=== PATIENT | female | born 1960 | race Caucasian/White ===

== ENCOUNTER 2019-11-05 09:00 | Outpatient (AMBR) | payer MEDICAID, SELFPAY ==
--- NOTE | 2019-10-22 10:46 | PT.OIERPT ---
PT OP Initial Eval Patient Information Pediatric or Adult Patient: Adult PT >13 Visit Reasons: low back pain Medical Diagnosis: Low back pain with radiculopathy. Treatment Dx #1: low back pain Treatment Dx #2: muscle weakness. Start of Care: 10/22/19 Date of Onset: 08/03/2019 Initial Assessment Subjective 59 y/o female who had LBP for almost a year now. Patient has pain on her Low back radiating towards her L hip. She has pain during sitting and ambulation. PS 10/10 at worst and 9/10 at best. Patient has no hx of falls. Objective Increase in lumbar lordosis (+) SLR LLE (+) Fabere test on LLE Iliac crest level on BLE MMT BLE 4/5 abdominals - 3+/5 lumbar extensors 4/5 Pain on low back PS 10/10 (+) muscle tightness on lumbar flexion, extension, lateral flexion to left and right. Assessment Patient demonstrates most disc herniation based on assessment and special test. Patient will need physical therapy for strengthening of abdominals and lumbar musculature. Decrease pain by modalities, kinesiotaping and manual therapy. Patient has 5 visits authorized by insurance. Will request for more visits after 5 txs. If there are no significant change noted after 10 visits will refer back to her PCP. Patient verbalized understanding. Short Term and Snf Goals 1. To decrease pain on her low back to 0-1/10 x 8 weeks to be able to move without limitations. 2. To increase ms strength on abdominals. lumbar extensors to 5/5 x 8 weeks 3.to be I with HEP Treatment Plan Thera ex Manual tx Kinesiotaping. Modalities (hmp, estim) Frequency and Duration 2x/wk x 8 weeks Certification Dates: 10/22/2019 to 01/21/2020
--- NOTE | 2019-10-26 10:19 | PT.ODAYNRPT ---
PT Outpatient Daily Note Date of Service: October 26, 2019 OP Daily Note Pediatric or Adult Patient: Adult PT >13 Visit Reasons: low back pain Outpatient Physical Therapy Treatment Date: 10/26/19 Subjective: I have pain on my LBP and radiates to my L bottom area. Objective: pls see FS Assessment: Patient were given modalities, ROM and STM with stretching to improve joint mobility. Patient feels tightness on her LLE. She has pain this morning when she wakes up. Plan: To continue POC toward goals Pain Present Currently: Yes Length of Time (minutes) of Treatment: 30 Minutes Office Procedures PT Procedures PT Date of Service: 10/22/19 OP PT Eval Mod Complex 30 minutes: Yes
--- NOTE | 2019-10-30 12:37 | PT.ODAYNRPT ---
PT Outpatient Daily Note Date of Service: October 30, 2019 OP Daily Note Visit Reasons: low back pain Outpatient Physical Therapy Treatment Date: 10/30/19 Subjective: pt came in with LBP upon visit. she had no concerns nor questions from last visit. Objective: see flow sheet. Assessment: added new ther ex for strengthening in which she was fatigued but completed all ther ex. she needs rest breaks in between exercises. she does get SOB. she was able to tolerate thera band with ther ex and good standing posture. did not increase pain. informed pt about possible soreness. pt had no complaints post ther ex. assisted her with bed mobility. Plan: continue POC per PT. Length of Time (minutes) of Treatment: 30 Minutes Office Procedures PT Procedures PT Date of Service: 10/22/19 OP PT Eval Mod Complex 30 minutes: Yes PT Procedures PT Date of Service: 10/26/19 OP Electrical Stimul Unattended: Yes Therapeutic Activity 15 minutes: Yes PT Procedures PT Date of Service: 10/30/19 OP Electrical Stimul Unattended: Yes Therapeutic Exercise 15 minutes: Yes
--- NOTE | 2019-11-05 09:08 | PT.ODAYNRPT ---
PT Outpatient Daily Note Date of Service: November 05, 2019 OP Daily Note Visit Reasons: low back pain Outpatient Physical Therapy Treatment Date: 11/05/19 Assessment: pt was not treated due to waiting on insurance auth. explained to pt. she will be contacted once auth is approved. Office Procedures PT Procedures PT Date of Service: 10/22/19 OP PT Eval Mod Complex 30 minutes: Yes PT Procedures PT Date of Service: 10/26/19 OP Electrical Stimul Unattended: Yes Therapeutic Activity 15 minutes: Yes PT Procedures PT Date of Service: 10/30/19 OP Electrical Stimul Unattended: Yes Therapeutic Exercise 15 minutes: Yes
== END 2019-11-17 23:59 | disposition home or self-care (01) ==
PROVIDERS: PCP Family Medicine; Referring Provider Family Medicine; Visit Provider Family Medicine
DX: M54.5 Low back pain (principal); M54.16 Radiculopathy, lumbar region; M62.81 Muscle weakness (generalized)
CPT/HCPCS: 97014; 97110; 97162; 97530; G0283

== ENCOUNTER 2024-11-28 11:56 | Emergency (ER) | payer MEDICAID, SELFPAY ==
[2024-11-28 11:58] VITALS: BMI 44.9
--- NOTE | 2024-11-28 12:13 | XR_ITS ---
Examination: PA lateral chest 2 views Technique: Upright PA lateral chest 2 views Exam date and time: November 28, 2024 1220 hrs. Comparison February 27, 2020 Indications: Flu symptoms today. Findings: Normal heart size Ectatic enlarged thoracic aorta Accentuation bronchovascular markings. No lobar pneumonia Impression: Bronchitis pattern
[2024-11-28 12:14] VITALS: BP 137/85; PULSE 98; RESP 22; TEMP 39.4; O2SAT 94; BMI 44.6
--- NOTE | 2024-11-28 12:20 | EDRME_ITS ---
Rapid Medical Screening Exam [facility] Arrival date/time: 11/28/24 11:56 64-year-old female with a history of hypertension and diabetes presents the emergency department complaints of fever body aches chills and cough Patient febrile at 102.9 sepsis alert initiated Chief Complaint: Flu Like Symptoms Time Seen by Provider: 11/28/24 12:07 Vital signs: Vital Signs Temperature 102.9 F H 11/28/24 12:14 Pulse Rate 98 11/28/24 12:14 Respiratory Rate 22 H 11/28/24 12:14 Blood Pressure 137/85 H 11/28/24 12:14 Pulse Oximetry (%) 94 L 11/28/24 12:14 Oxygen Delivery Method Room Air 11/28/24 12:14
[2024-11-28 12:39] VITALS: TEMP 39.4
[2024-11-28] MEDS: ACETAMINOPHEN 500 MG TABLET 1000 MG PO (12:39)
[2024-11-28 13:17] LABS: Collection Type, Urine Clean Catch
[2024-11-28 13:18] LABS: Lactate (Lactic Acid) 1.5 mMol/L (0.4-2.0)
[2024-11-28 13:26] LABS: Basophils % (Auto) 1 % (0-2.5); Eosinophils % (Auto) 1 % (0-10); Hematocrit 41.1 % (36.0-46.0); Hemoglobin 13.8 g/dL (12.0-16.0); Immature Granulocytes % (Auto) 1 % (0-0); Immature Granulocytes Auto 0.03 Thou/mm3 (0.00-0.00); Lymphocytes # (Auto) 0.6 Thou/mm3 (1.0-4.8); Lymphocytes % (Auto) 9 % (10-50); Mean Corpuscular HGB Conc 33.6 g/dl (31.0-37.0); Mean Corpuscular Hemoglobin 28.9 pg (25.0-35.0); Mean Corpuscular Volume 86 fL (80-100); Monocytes # (Auto) 0.9 Thou/mm3 (0.0-0.8); Monocytes % (Auto) 14 % (0-12); Neutrophils % (Auto) 76 % (37-80); Nucleated Red Blood Cell % 0 /100 WBC (0); Platelet Count 194 Thou/mm3 (140-440); RDW Standard Deviation 43.1 fL (36.4-46.3); Red Blood Count 4.78 Miln/mm3 (4.00-5.20); White Blood Count 6.5 Thou/mm3 (3.6-11.0)
[2024-11-28 13:36] LABS: Glucose Estimated Average 105 mg/dL (80-131); Hemoglobin A1C 5.3 % Hgb (4.8-6.0)
--- NOTE | 2024-11-28 13:43 | EDNOTE_ITS ---
Upper Respiratory Inf. RME/HPI General Chief Complaint: Flu Like Symptoms Stated Complaint: FLU SYMPTOMS FOR 3 DAYS Time Seen by Provider: 11/28/24 12:07 Arrival date/time: 11/28/24 11:56 RME / HPI RME / HPI Narrative: 64-year-old female patient with significant history of hypertension diabetes mellitus, came in for evaluation regarding flulike symptoms. Patient is having flulike symptoms for the last 3 days, described as sore throat body aches dizziness cough fever that comes and goes, severity moderate. Patient denies any vomiting denies any diarrhea denies any constipation denies any ill contacts no medication was taken prior to arrival. Related Data Home Medications ?Medication ?Instructions ?Recorded ?Confirmed levothyroxine 50 mcg tablet 50 mcg PO DAILY Thyroid ##0 09/24/13 08/11/24 (Synthroid) metformin 500 mg tablet 500 mg PO BID #0 tabs 02/08/14 08/11/24 (Glucophage) omeprazole 40 mg capsule,delayed 20 mg PO QDAY 02/13/18 08/11/24 release amlodipine 5 mg tablet 10 mg PO QDAY 08/16/18 08/11/24 docusate sodium 100 mg capsule 100 mg PO BID 08/16/18 08/11/24 (Doc-Q-Lace) lisinopril 40 mg tablet 40 mg PO QDAY 09/12/18 08/11/24 estradiol 10 mcg vaginal tablet 10 mcg vaginal DIRECTED 01/02/22 08/11/24 (Vagifem) atorvastatin 10 mg tablet 10 mg PO QDAY 03/04/23 08/11/24 Previous Rx's ?Medication ?Instructions ?Recorded docusate sodium 100 mg capsule 100 mg PO BID #40 caps 03/05/23 (Colace) hydrocodone 7.5 mg-acetaminophen 1 tab PO Q6H PRN pain (scale score 03/05/23 325 mg tablet 7-10) #20 tabs cefuroxime axetil 500 mg tablet 500 mg PO BID #14 tabs 11/28/24 ibuprofen 800 mg tablet 800 mg PO TID PRN pain #30 tabs 11/28/24 oseltamivir 75 mg capsule (Tamiflu) 75 mg PO BID 5 days #10 caps 11/28/24 Allergies Allergy/AdvReac Type Severity Reaction Status Date / Time ibuprofen AdvReac Severe UPSET Verified 11/28/24 12:01 STOMACH DUE TO GERD Review of Systems Review of Systems Narrative Review of Systems: Review of system reviewed and within normal limits except mentioned in HPI ED Exam Narrative Physical exam: VITAL SIGNS: Reviewed. GENERAL APPEARANCE: Alert and interactive, follows commands, no acute distress, HEAD AND FACE: Non-traumatic. ENT: PERRL, pink conjunctivitis, eyelid no trauma, Mucous membrane moist. NECK: Supple, nontender, no nuchal rigidity. CHEST: No tenderness, no crepitus, no paradoxical movement, no retractions. LUNGS: Clear, well ventilated, symmetric, no rales, no wheezing, no ronchi, no stridor, good breath sounds bilaterally. HEART: Regular rate, regular rhythm, no murmur, no gallops. ABDOMEN: Soft, positive bowel sounds, nondistended, no guarding, nontender, no rebound, no masses, RECTAL: Deferred. GENITAL: Deferred. NEUROLOGICAL: Gross motor function intact sensory function intact, Appropriate for age. MUSCULOSKELETAL: low back nontender, full range of motion. EXTREMITIES: Nontender, full range of motion. SKIN: Color pink, dry, no rash, no lacerations, no abrasions, no contusions. LYMPHATICS: Deferred. Course Quality Measures none Orders Category Date Time Status Bedside COVID-19 Antigen Test NOW Care 11/28/24 12:13 Active Bedside Influenza A&B Antigen Test NOW Care 11/28/24 12:13 Completed Insert IV NOW Care 11/28/24 12:14 Active XR chest 2V Stat Exams 11/28/24 12:13 Completed A1C [Glycohemoglobin w (eAG)] Stat Lab 11/28/24 12:59 Completed Blood Culture (Lab) Stat Lab 11/28/24 12:54 Received CBC Stat Lab 11/28/24 12:59 Completed Comprehensive Metabolic Panel Stat Lab 11/28/24 12:59 Completed Lactate (Lactic Acid) Stat Lab 11/28/24 12:59 Completed Procalcitonin Stat Lab 11/28/24 12:59 Completed Urinalysis Stat Lab 11/28/24 12:39 Completed Urine Culture Stat Lab 11/28/24 12:39 Received Acetaminophen Tab [Tylenol ES Tab] Med 11/28/24 12:14 Discontinued 1,000 mg PO X1 ONE Oseltamivir [Tamiflu] Med 11/28/24 13:41 Discontinued 75 mg PO X1 ONE Sodium Chloride 0.9% 1000 ml [Ns] 1,000 ml Med 11/28/24 12:14 Discontinued IV 999 mls/hr cephALEXin [Keflex] Med 11/28/24 14:05 Discontinued 500 mg PO X1 ONE Vital Signs Vital signs: Vital Signs Temperature 102.9 F H 11/28/24 12:14 Pulse Rate 98 11/28/24 12:14 Respiratory Rate 22 H 11/28/24 12:14 Blood Pressure 137/85 H 11/28/24 12:14 Pulse Oximetry (%) 94 L 11/28/24 12:14 Oxygen Delivery Method Room Air 11/28/24 12:14 Upper Respiratory Infection MDM Narrative MDM Narrative:: 64-year-old female patient with significant history of hypertension diabetes mellitus, came in for evaluation regarding flulike symptoms. Patient is having flulike symptoms for the last 3 days, described as sore throat body aches dizziness cough fever that comes and goes, severity moderate. Patient denies any vomiting denies any diarrhea denies any constipation denies any ill contacts no medication was taken prior to arrival. Patient tested positive for influenza. Urinalysis mild UTI. Rest of the labs unremarkable. Chest x-ray no pneumonia. Results discussed with the patient and family. Patient was given Tamiflu and Keflex in the emergency room. Patient was also given Tylenol and IV fluids. Prior to discharge patient was noted to be satting 94% on room air Patient data External records reviewed:: None Clinical information provided by:: patient and family Social determinants that could affect healthcare access:: none Patient has the following chronic illnesses:: Diabetes mellitus hypertension How is presenting disease/condition affected by chronic disease/condition?: uneffected by Evaluation data The following diagnostics were reviewed and interpreted by me:: lab results, radiology exam(s) and EKG tracing(s) Lab and/or radiology exams considered but not ordered:: None Interpretation Summary: Reports workup all came back unremarkable except positive for UTI and positive for influenza B chest x-ray came back normal. Medications / Prescriptions Medications or Prescriptions considered but not ordered:: None Medication administrations:: Medication Administration History Discontinued Medications Acetaminophen (Acetaminophen 500 Mg Tablet) 1,000 mg PO X1 ONE Stop: 11/28/24 12:15 Last Admin: 11/28/24 12:39 Dose: 1,000 mg Documented By: JOSE Cephalexin HCl (Cephalexin 250 Mg Capsule) 500 mg PO X1 ONE Stop: 11/28/24 14:06 Last Admin: 11/28/24 14:08 Dose: 500 mg Documented By: SADIA Sodium Chloride (Ns) 1,000 mls @ 999 mls/hr IV .Q1H1M ONE Stop: 11/28/24 13:14 Last Admin: 11/28/24 14:05 Dose: 999 mls/hr Documented By: SADIA Oseltamivir Phosphate (Oseltamivir 75 Mg Capsule) 75 mg PO X1 ONE Stop: 11/28/24 13:42 Last Admin: 11/28/24 14:02 Dose: 75 mg Documented By: SADIA Tamiflu IV fluids Keflex and Tylenol Consultations Consultation(s) initiated? (list below): No Diagnosis Upper Respiratory Differential Diagnosis: upper respiratory infection, influenza and other ( uti) Most likely diagnosis given after review of the tests above:: Influenza, UTI Admission Indicated Admission indicated?: not indicated Explain why admission is indicated or not indicated:: Stable Admission Request Was there a request for admission?: No Disposition Plan Disposition Plan: Discharge Discharge Attestation Discharge Attestation: The patient and all family members were given an opportunity to ask questions and understood the discharge instructions. Discharge instructions specifically effects, indications for sooner follow up or return to the emergency department, and the expected course of current diagnosis. Patient condition: Stable Discharge Plan Plan Patient Disposition: HOME (Self Care) Disposition Comment: Stable Prescriptions/Referrals Prescriptions/Med Rec: New cefuroxime axetil 500 mg tablet 500 mg PO BID Qty: 14 0RF oseltamivir [Tamiflu] 75 mg capsule 75 mg PO BID 5 Days Qty: 10 0RF ibuprofen 800 mg tablet 800 mg PO TID PRN (Reason: pain) Qty: 30 0RF No Action estradiol [Vagifem] 10 mcg tablet 10 mcg vaginal DIRECTED Patient Comments: twice a week levothyroxine [Synthroid] 50 MCG tablet 50 mcg PO DAILY Qty: 0 metformin [Glucophage] 500 MG tablet 500 mg PO BID Qty: 0 omeprazole 40 mg Capsule,Delayed Release(Dr/Ec) 20 mg PO QDAY amlodipine 5 mg Tablet 10 mg PO QDAY docusate sodium [Doc-Q-Lace] 100 mg Capsule 100 mg PO BID lisinopril 40 mg Tablet 40 mg PO QDAY atorvastatin 10 mg tablet 10 mg PO QDAY Patient Comments: TAKE 1 TABLET BY MOUTH EVERY DAY AT NIGHT docusate sodium [Colace] 100 mg capsule 100 mg PO BID Qty: 40 0RF hydrocodone-acetaminophen 7.5-325 mg tablet 1 tab PO Q6H MDD 4 PRN (Reason: pain (scale score 7-10)) Qty: 20 0RF Referrals: Nayla Headley PA-C [Primary Care Provider] - In 1 week Problem List Clinical Impression: Urinary tract infection, Influenza Patient/Caregiver Discharge Instructions Discharge Activity: activity as tolerated Education Materials: ED Influenza (Adult) Additional Instructions: Thank you for the opportunity for serving you today. You are stable for discharged . You are advised to: Follow-up with your PCP in 1 to 2 days Return to ED for worsening of symptoms Increase oral fluids Take medication as prescribed Print Language: [place] Stand Alone Forms: K[employer]ya Award Info., Patient Portal Info Letter PA/JUAN J Supervising Physician PIOTR/JUAN J Supervising Physician: MD Savi
[2024-11-28 13:47] VITALS: BP 100/62; PULSE 89; RESP 17; TEMP 37.7; O2SAT 94
[2024-11-28 13:52] VITALS: TEMP 37.7
[2024-11-28 13:59] LABS: Alanine Aminotransferase 35 U/L (10-49); Albumin, Serum 4.8 gm/dL (3.4-4.8); Albumin/Globulin Ratio 1.4 (1.2-2.2); Alkaline Phosphatase 69 U/L (46-116); Anion Gap 8 (7-16); Aspartate Amino Transferase 33 U/L (0-34); BUN/Creatinine Ratio 19 Ratio (12-20); Bilirubin,Total 0.5 mg/dL (0.3-1.2); Blood Urea Nitrogen 15 mg/dL (9-23); Calcium 9.3 mg/dL (8.3-10.6); Calcium (Corrected) 9.3 mg/dL (8.5-10.1); Carbon Dioxide 23.9 mMol/L (20.0-31.0); Chloride 104 mMol/L (98-107); Creatinine (Component) 0.8 mg/dL (0.6-1.3); Estimated Creatinine Clearance 95.3 mL/min (>60); Globulin 3.4 gm/dL (2.3-3.5); Glucose 118 mg/dL (74-106); Osmolality,Calculated 273 (275-295); Procalcitonin 0.04 ng/ml (0.0-0.49); Sodium 136 mMol/L (136-145); Total Protein 8.2 gm/dL (5.7-8.2); eGFR > 60 See Note
[2024-11-28 13:59] LABS: Bacteria,Urine 3+; Bilirubin,Urine Negative (Negative); Blood,Urine Negative (Negative); Color,Urine Lt-Yellow (Lt Yel-Yel); Glucose, Urine Negative (Negative); Ketones,Urine Negative (Negative); Leukocyte Esterase,Urine Positive (Negative); Nitrite,Urine Positive (Negative); Protein,Urine Negative (Neg - Trace); RBC,Urine 5 /hpf (0-3); Specific Gravity,Urine 1.021 (1.001-1.035); Squamous Epithelial Cell,Urine 4 /hpf (0-5); Urobilinogen,Urine Negative mg/dL (0.0-1.0); WBC,Urine 5 /hpf (0-5)
[2024-11-28 14:00] LABS: Clarity,Urine Hazy (Clear/Hazy)
[2024-11-28] MEDS: OSELTAMIVIR 75 MG CAPSULE PO (14:02)
[2024-11-28] MEDS: SODIUM CHLORIDE 0.9% 1000 ML 1,000 ML 999 ML IV (14:05)
[2024-11-28] MEDS: cephALEXin 250 MG CAPSULE 500 MG PO (14:08)
[2024-11-28 15:00] VITALS: BP 162/82; PULSE 83; RESP 17; O2SAT 96
[2024-11-28 16:54] VITALS: BP 108/48; PULSE 83; RESP 15; TEMP 37; O2SAT 96
== END 2024-11-28 17:07 | disposition home or self-care (01) ==
PROVIDERS: Nurse Practitioner Primary Care; Emergency Provider Emergency Medicine; PCP Physician Assistant
DX: N39.0 Urinary tract infection, site not specified (principal); J10.1 Influenza due to other identified influenza virus with other respiratory manifestations
CPT/HCPCS: 36415; 71046; 80053; 81001; 83036; 83605; 84145; 85025; 87040; 87077; 87086; 87186; 87400; 87811; 96360; 96361; 99284; J7030; A9270

== ENCOUNTER 2024-12-21 11:41 | Emergency (ER) | payer MEDICAID, SELFPAY ==
[2024-12-21 11:41] VITALS: BMI 45.1
[2024-12-21 12:54] VITALS: BP 143/89; PULSE 78; RESP 20; TEMP 36.9; O2SAT 96; BMI 45.1
--- NOTE | 2024-12-21 12:58 | XR_ITS ---
Examination: Wrist, left 3 views Technique: Wrist AP, oblique, lateral 3 views Date and time of exam: December 21, 2024 1303 hours INDICATIONS: Left wrist pain beginning 2 days ago. FINDINGS: Moderate osteopenia No fracture or dislocation Mild diffuse osteoarthritis IMPRESSION: Mild diffuse osteoarthritis
--- NOTE | 2024-12-21 12:58 | XR_ITS ---
Examination: Hand, left 3 views Technique: Hand AP, oblique, lateral 3 views Date and time of exam: December 21, 2024 1303 hours INDICATIONS: Left hand pain beginning 2 days ago FINDINGS: Moderate osteopenia Mild diffuse osteoarthritis especially distal interphalangeal joints second through fifth digits and interphalangeal joint first digit No fracture No cortical bone destruction No opaque foreign body IMPRESSION: Mild osteoarthritis
[2024-12-21 13:33] LABS: Basophils # (Auto) 0.1 Thou/mm3 (0.0-0.2); Basophils % (Auto) 1 % (0-2.5); Eosinophils # (Auto) 0.2 Thou/mm3 (0.0-0.5); Eosinophils % (Auto) 2 % (0-10); Hematocrit 39.7 % (36.0-46.0); Hemoglobin 13.3 g/dL (12.0-16.0); Immature Granulocytes % (Auto) 0 % (0-0); Immature Granulocytes Auto 0.02 Thou/mm3 (0.00-0.00); Lymphocytes # (Auto) 3.4 Thou/mm3 (1.0-4.8); Lymphocytes % (Auto) 35 % (10-50); Mean Corpuscular HGB Conc 33.5 g/dl (31.0-37.0); Mean Corpuscular Hemoglobin 28.7 pg (25.0-35.0); Mean Corpuscular Volume 86 fL (80-100); Monocytes # (Auto) 0.9 Thou/mm3 (0.0-0.8); Monocytes % (Auto) 9 % (0-12); Neutrophils # (Auto) 5.2 Thou/mm3 (1.8-7.7); Neutrophils % (Auto) 54 % (37-80); Nucleated Red Blood Cell % 0 /100 WBC (0); Platelet Count 237 Thou/mm3 (140-440); RDW Standard Deviation 42.6 fL (36.4-46.3); Red Blood Count 4.63 Miln/mm3 (4.00-5.20); White Blood Count 9.6 Thou/mm3 (3.6-11.0)
[2024-12-21 13:54] LABS: Alanine Aminotransferase 24 U/L (10-49); Albumin, Serum 4.5 gm/dL (3.4-4.8); Albumin/Globulin Ratio 1.3 (1.2-2.2); Alkaline Phosphatase 73 U/L (46-116); Anion Gap 9 (7-16); Aspartate Amino Transferase 18 U/L (0-34); BUN/Creatinine Ratio 20 Ratio (12-20); Bilirubin,Total 0.4 mg/dL (0.3-1.2); Blood Urea Nitrogen 16 mg/dL (9-23); Calcium 9.4 mg/dL (8.3-10.6); Calcium (Corrected) 9.4 mg/dL (8.5-10.1); Carbon Dioxide 25.6 mMol/L (20.0-31.0); Chloride 104 mMol/L (98-107); Creatinine (Component) 0.8 mg/dL (0.6-1.3); Globulin 3.5 gm/dL (2.3-3.5); Glucose 94 mg/dL (74-106); Osmolality,Calculated 278 (275-295); Potassium 4.1 mMol/L (3.4-5.1); Sodium 139 mMol/L (136-145); eGFR > 60 See Note
--- NOTE | 2024-12-21 14:19 | XR_ITS ---
Examination: Duplex scan of the upper extremity, unilateral left complete Date and time of exam: December 21, 2024 at 1420 hours INDICATIONS: Left arm pain and swelling beginning 2 days ago Technique: Duplex scan of the extremity veins using B-mode/grayscale imaging and Doppler spectral analysis and color flow Attention is directed to internal echogenicity, compression and augmentation involving these veins, color flow assessment, spectral analysis Findings: Major deep venous structures in the extremity demonstrate normal course and caliber. There is no evidence of deep vein thrombosis. Normal color flow and spectral analysis Impression: Negative for DVT..
--- NOTE | 2024-12-21 15:10 | EDNOTE_ITS ---
Upper Extremity Injury RME/HPI General Chief Complaint: Hand/Wrist Problems Stated Complaint: LEFT HAND SWELLING SENT BY PMD Time Seen by Provider: 12/21/24 12:57 Arrival date/time: 12/21/24 11:41 64-year-old female with history of carpal tunnel hypertension hypercholesterolemia presents department today with complaints of left wrist pain and swelling to left hand and wrist Limitations: no limitations Related Data Home Medications ?Medication ?Instructions ?Recorded ?Confirmed levothyroxine 50 mcg tablet 50 mcg PO DAILY Thyroid ## 0 09/24/13 08/11/24 (Synthroid) metformin 500 mg tablet 500 mg PO BID #0 tabs 08/11/24 (Glucophage) omeprazole 40 mg capsule,delayed 20 mg PO QDAY 8 08/11/24 release amlodipine 5 mg tablet 10 mg PO QDAY 08/16/1808/11 docusate sodium 100 mg capsule 100 mg PO BID 08/16/18 08/11/24 (Doc-Q-Lace) lisinopril 40 mg tablet 40 mg PO QDAY 09/12/1808/11 estradiol 10 mcg vaginal tablet 10 mcg vaginal DIRE CTED 01/02/22 08/11/24 (Vagifem) atorvastatin 10 mg tablet 10 mg PO QDAY 03/04/2308/11 Previous Rx's ?Medication ?Instructions ?Recorded docusate sodium 100 mg capsule 100 mg PO BID #40 caps 03/05/23 (Colace) hydrocodone 7.5 mg-acetaminophen 1 tab PO Q6H PRN pain (scale score 03/05/23 325 mg tablet 7-10) #20 tabs cefuroxime axetil 500 mg tablet 500 mg PO BID #14 tabs 11/28/24 ibuprofen 800 mg tablet 800 mg PO TID PRN pain #30 t abs 11/28/24 hydrocodone 5 mg-acetaminophen 325 1 tab PO BID PRN pa in #10 tabs 12/21/24 mg tablet Allergies Allergy/AdvReac Type Severity Reaction Status Date / Time ibuprofen AdvReac Severe UPSET Verified 11/28/24 12:01 STOMACH DUE TO GERD Review of Systems Review of Systems Systems Reviewed: All systems reviewed, normal except as documented Constitutional Constitutional: Reports system reviewed and no additional complaints, except as documented, Denies fever(s) and Denies headache(s) Eyes Eyes: Reports system reviewed and no additional complaints, except as documented and Denies blurry vision ENT Ears, Nose, Mouth, and Throat: Reports system reviewed and no additional complaints, except as documented, Denies headache(s), Denies nasal congestion and Denies nasal discharge Cardiovascular Cardiovascular: Reports system reviewed and no additional complaints, except as documented, Denies chest pain and Denies dyspnea Respiratory Respiratory: Reports system reviewed and no additional complaints, except as documented, Denies chest congestion, Denies cough and Denies dyspnea Gastrointestinal Gastrointestinal: Reports system reviewed and no additional complaints, except as documented and Denies abdominal pain Musculoskeletal Musculoskeletal: Reports system reviewed and no additional complaints, except as documented, Reports arthralgias, Denies deformity, Reports joint swelling, Denies numbness, Reports stiffness and Denies tingling Integumentary/Breasts Skin/Breast: Reports system reviewed and no additional complaints, except as documented and Denies rash Neurologic Neurologic: Reports system reviewed and no additional complaints, except as documented, Reports as per HPI, Denies headache(s), Denies numbness and Denies tingling Past Medical History Past Medical History NEUROLOGIC: Negative Neurological Disorders, Cerebrovascular Accident, Dementia, Brain Tumor, Seizures, Epilepsy, Migraine or Head Trauma CARDIAC: Positive Cardiac Disorders, Edema (sometimes) and Hypertension; Negative Hypercholesterolemia, Congestive Heart Failure or Cellulitis RESPIRATORY: Positive Bronchitis (in the past) and Sleep Apnea (uses cpap); Negative Chronic Obstructive Pulmonary Disease (COPD), Pneumonia or Tuberculosis GASTROINTESTINAL: Positive Gastrointestinal Disorders, Hepatitis (long time ago), Gall Bladder Disease, Gastroesophageal Reflux Disease and Obesity; Negative Ulcer or Colorectal Cancer GENITOURINARY: Negative Genitourinary Disorders, Renal Disease or Prostate Cancer REPRODUCTIVE: Positive Previous Pregnancies (x4); Negative Breast Cancer, Endometriosis, Pelvic Inflammatory Disease or Testicular Cancer MUSCULOSKELETAL: Positive Arthritis and Carpal Tunnel Syndrome; Negative Bone Cancer, Osteoporosis, Gout, Scoliosis, Fractures or Poliovirus ENT: Negative Head Trauma ENDOCRINE: Positive Endocrine Disorders, Diabetes Mellitus Type 2 and Hypothyroidism; Negative Diabetes Mellitus Type 1, Systemic Lupus Erythematosus or Graves' Disease HEMATOLOGIC: Negative Blood Disorders PSYCHO/SOCIAL: Positive Anxiety OTHER HISTORY: Positive Chicken Pox; Negative Hospitalization, Autoimmune Disease, Shingles, Falls, Blood Transfusions, Blood Transfusion Reaction, Anesthesia Reactions, Organ Transplant, Chemotherapy, MRSA, VRSA, Vancomycin-Resistant Enterococci, Measles, Mumps, Pertussis, Cancer, Breast Cancer, Cervical Cancer, Colorectal Cancer, Lung Cancer, Ovarian Cancer, Prostate Cancer or Testicular Cancer Family History FAMILY HISTORY: Negative Family Psychiatric Problems, Family Respiratory Disorders, Family Cardiac Disorders, Family Gastrointestinal Problems, Family Cancer, Family Surgery or Family Anesthesia Reaction Surgical History SURGICAL: Positive Hysterectomy and Tubal Ligation; Negative Cardiac Surgery, Pacemaker, Angiogram, Auto Implanted Cardiovert Defib, Carotid Endarterectomy, Endocrine Surgery, Thyroidectomy, Ear Surgery, Tympanostomy Tube, Eye Surgery, Nose Surgery, Oral Surgery, Tonsillectomy, Nephrectomy, Transurethral Resection, Joint Replacement, Amputation, Open Reduc tion Internal Fixation, Arthroscopy, Neurologic Surgery, Brain Shunt, Mastectomy, Section or Organ Transplant Social History SMOKING STATUS: Never smoker SECOND HAND EXPOSURE: Yes SUBSTANCE USE: does not use ED Exam General Limitations: Present no limitations General appearance: Present alert and in no apparent distress Head Head exam: Present atraumatic Eye Eye exam: Present normal appearance, PERRL and EOMI ENT ENT exam: Present normal exam, normal oropharynx and mucous membranes moist Neck Neck exam: Present normal inspection, full ROM and trachea midline Chest Chest inspection: Present normal inspection and symmetric chest wall rise Respiratory Respiratory exam: Present normal lung sounds bilaterally Cardiovascular Cardiovascular exam: Present regular rate, normal rhythm and normal heart sounds Abdominal Exam Abdominal exam: Present soft and normal bowel sounds Extremities Exam Extremities exam: Present normal inspection and full ROM Back Exam Back exam: Present normal inspection and full ROM Neurological Exam Neurological exam: Present alert, oriented X3 and CN II-XII intact Psychiatric Psychiatric exam: Present normal affect and normal mood Skin Skin exam: Present warm, dry, intact and normal color Course Quality Measures none Orders Category Date Time Status US venous doppler UE LT Stat Exams 12/21/24 14:19 Completed XR hand comp LT min 3V Stat Exams 12/21/24 12:58 Completed XR wrist comp LT min 3V Stat Exams 12/21/24 12:58 Completed CBC Stat Lab 12/21/24 13:16 Completed CMP [Comprehensive Metabolic Panel] Stat Lab 12/21/24 13:16 Completed Uric Acid Stat Lab 12/21/24 13:16 Completed Vital Signs Vital signs: Vital Signs Temperature 98.5 F 12/21/24 12:54 Pulse Rate 78 12/21/24 12:54 Respiratory Rate 20 12/21/24 12:54 Blood Pressure 143/89 H 12/21/24 12:54 Pulse Oximetry (%) 96 12/21/24 12:54 Oxygen Delivery Method Room Air 12/21/24 12:54 O2 saturation 96% room air with normal limits Extremity Injury MDM Narrative MDM Narrative:: 64-year-old female with history of carpal tunnel hypertension hypercholesterolemia presents department today with complaints of left wrist pain and swelling to left hand and wrist On exam patient has pain, swelling to the left hand and left wrist Patient can make a fist to move all fingers without difficulty X-ray of the left hand and wrist obtained no acute fracture dislocation noted but patient has quite a bit of arthritis Ultrasound of the upper extremity obtained no acute DVT noted Lab work obtained no leukocytosis no evidence of infection Patient discharged home in no distress to follow-up with primary care doctor in the next 24 to 48 hours and for any worsening symptoms to return to the ER immediately Patient data External records reviewed:: [facility] previous records Clinical information provided by:: patient Social determinants that could affect healthcare access:: none Patient has the following chronic illnesses:: None How is presenting disease/condition affected by chronic disease/condition?: no chronic disease Evaluation data The following diagnostics were reviewed and interpreted by me:: lab results and radiology exam(s) Lab and/or radiology exams considered but not ordered:: Radiology obtain, labs Interpretation Summary: Reviewed by me Medications / Prescriptions Medications or Prescriptions considered but not ordered:: Given Medication administrations:: Given Consultations Consultation(s) initiated? (list below): No Diagnosis Upper Extremity Injury Differential Diagnosis: sprain and strain of wrist and fracture of wrist Most likely diagnosis given after review of the tests above:: Wrist pain Admission Indicated Admission indicated?: not indicated Admission Request Was there a request for admission?: No Disposition Plan Disposition Plan: Discharge Discharge Attestation Discharge Attestation: The patient and all family members were given an opportunity to ask questions and understood the discharge instructions. Discharge instructions specifically effects, indications for sooner follow up or return to the emergency department, and the expected course of current diagnosis. Patient condition: Stable Discharge Plan Plan Patient Disposition: HOME (Self Care) Disposition Comment: Stable Prescriptions/Referrals Prescriptions/Med Rec: New hydrocodone-acetaminophen 5-325 mg tablet 1 tab PO BID MDD 10 PRN (Reason: pain) Qty: 10 0RF No Action estradiol [Vagifem] 10 mcg tablet 10 mcg vaginal DIRECTED Patient Comments: twice a week levothyroxine [Synthroid] 50 MCG tablet 50 mcg PO DAILY Qty: 0 metformin [Glucophage] 500 MG tablet 500 mg PO BID Qty: 0 omeprazole 40 mg Capsule,Delayed Release(Dr/Ec) 20 mg PO QDAY amlodipine 5 mg Tablet 10 mg PO QDAY docusate sodium [Doc-Q-Lace] 100 mg Capsule 100 mg PO BID lisinopril 40 mg Tablet 40 mg PO QDAY atorvastatin 10 mg tablet 10 mg PO QDAY Patient Comments: TAKE 1 TABLET BY MOUTH EVERY DAY AT NIGHT docusate sodium [Colace] 100 mg capsule 100 mg PO BID Qty: 40 0RF hydrocodone-acetaminophen 7.5-325 mg tablet 1 tab PO Q6H MDD 4 PRN (Reason: pain (scale score 7-10)) Qty: 20 0RF cefuroxime axetil 500 mg tablet 500 mg PO BID Qty: 14 0RF ibuprofen 800 mg tablet 800 mg PO TID PRN (Reason: pain) Qty: 30 0RF Problem List Clinical Impression: Osteoarthritis of hand, left Patient/Caregiver Discharge Instructions Education Materials: Osteoarthritis Additional Instructions: Please follow up with your primary care doctor in the next 24-48hrs for any worsening symptoms return here immediately Print Language: Icelandic Stand Alone Forms: [employer] Award Info., Patient Portal Info Letter PA/NETWORK OPERATIONS LEAD Supervising Physician PA/NETWORK OPERATIONS LEAD Supervising Physician: Dr. Lopez
== END 2024-12-21 15:50 | disposition home or self-care (01) ==
LOC: SERX 16:32
PROVIDERS: Nurse Practitioner Primary Care; Emergency Provider Emergency Medicine; PCP Physician Assistant
DX: M19.042 Primary osteoarthritis, left hand (principal); I10 Essential (primary) hypertension; E78.00 Pure hypercholesterolemia, unspecified
CPT/HCPCS: 36415; 73110; 73130; 80053; 84550; 85025; 93971; 99284

== ENCOUNTER → 2025-01-21 | Outpatient (CLI) | payer MEDICAID, SELFPAY ==
--- NOTE | 2025-01-21 11:15 | XR_ITS ---
Examination: Screening digital mammography, bilateral Computer aided detection 3-D breast Tomosynthesis, bilateral Date and time of exam: January 21, 2025 1107 hours Compared to mammograms dating to June 27, 2017 Indication: Screening Technique: Nonmagnified MLO, CC views of the breasts to been obtained, reconstructed from 3-D Tomosynthesis images. R2 computer aided detection program utilized for evaluation of suspicious masses and/or abnormal calcifications. 3-D Tomosynthesis images obtained. Findings: Scattered areas of fibroglandular density. Benign calcifications. Skin lesion outer left breast. No interval suspicious masses Impression: BI-RADS category II: Benign Findings. Recommend 1 year follow-up mammogram.
== END | disposition home or self-care (01) ==
LOC: CDIM 10:49
PROVIDERS: Referring Provider Physician Assistant; Visit Provider Physician Assistant
DX: Z12.31 Encounter for screening mammogram for malignant neoplasm of breast (principal); R92.323 Mammographic fibroglandular density, bilateral breasts; R92.1 Mammographic calcification found on diagnostic imaging of breast
CPT/HCPCS: 77063; 77067